=== PATIENT | male | born 1955 | race Caucasian/White ===

== ENCOUNTER 2016-06-15 19:53 | Emergency (ER) | payer OTHER, MEDICAID ==
[~2016-06-15] VITALS: Ht 175.3 cm; Wt 89.9 kg
[2016-06-15 22:27] VITALS: BP 124/51
== END 2016-06-15 23:13 | disposition home or self-care (01) ==
LOC: ED 21:26
DX: F10.120 Alcohol abuse with intoxication, uncomplicated (principal)
CPT/HCPCS: 99283

== ENCOUNTER 2016-06-20 08:23 | Emergency (ER) | payer MEDICAID, OTHER ==
[~2016-06-20] VITALS: Ht 175.3 cm; Wt 89.9 kg
[2016-06-20 10:03] LABS: HEMOGLOBIN 14.6 g/dL (13.7-18.0)
[2016-06-20 10:06] LABS: ASPARTATE AMINO TRANSFERASE 35 U/L (15-37); BLOOD UREA NITROGEN 14 mg/dL (7-18)
[2016-06-20 12:02] VITALS: BP 106/57
== END 2016-06-20 12:54 | disposition home or self-care (01) ==
LOC: ED 12:48
DX: F10.229 Alcohol dependence with intoxication, unspecified (principal)
CPT/HCPCS: 36415; 80053; 80307; 83690; 85025; 85610; 99284

== ENCOUNTER 2016-06-21 04:29 | Emergency (ER) | payer SELFPAY ==
[~2016-06-21] VITALS: Ht 177.8 cm; Wt 85.0 kg
[2016-06-21 05:26] LABS: HEMOGLOBIN 14.1 g/dL (13.7-18.0)
[2016-06-21 05:37] LABS: BLOOD UREA NITROGEN 16 mg/dL (7-18)
[2016-06-21 05:40] LABS: ASPARTATE AMINO TRANSFERASE 45 U/L (15-37)
[2016-06-21 05:56] LABS: ACETAMINOPHEN < 2 mcg/mL (10-30)
[2016-06-21 09:15] LABS: DAU SCREEN DISCLAIMER
[2016-06-21 09:36] VITALS: BP 109/69
== END 2016-06-21 13:14 | disposition home or self-care (01) ==
LOC: ED 05:33
DX: F10.229 Alcohol dependence with intoxication, unspecified (principal)
CPT/HCPCS: 36415; 80053; 80307; 80329; 81003; 85025; 99284; G0480